=== PATIENT | female | born 1995 | race African-American/Black ===

== ENCOUNTER 2018-08-07 08:44 | Emergency (ER) | payer SELFPAY ==
[2018-08-07] MEDS ORDERED: LIDOCAINE 1% INJ-PF (10 MG/ML) 30 ML SDV NEB ONE (09:30)
[2018-08-07] MEDS ORDERED: CEFTRIAXONE INJ 250 MG VIAL IM ONE (09:30)
[2018-08-07] MEDS ORDERED: AZITHROMYCIN 1 GM SUSP PACKET PO ONE (09:30)
--- NOTE | 2018-08-07 10:16 | RADIOLOGY REPORT (SQ) ---
EXAM DESCRIPTION: FOOT RIGHT COMPLETE COMPLETED DATE/TIME: 08/07/2018 9:52 am REASON FOR STUDY: 5th toe injury COMPARISON: None. NUMBER OF VIEWS: Three views. TECHNIQUE: AP, lateral and oblique radiographic images acquired of the right foot. LIMITATIONS: None. FINDINGS: MINERALIZATION: Normal. BONES: Curvilinear bone fragment along the medial margin of the base middle 5th phalanx. JOINTS: No effusions. SOFT TISSUES: No soft tissue swelling. No foreign body. OTHER: No other significant finding. IMPRESSION: Nondisplaced avulsion fracture middle 5th phalanx. TECHNICAL DOCUMENTATION: JOB ID: [id number] [employer]- All Rights Reserved Reading location - IP/workstation name: [email or web address]
--- NOTE | 2018-08-07 13:06 | ER Document Report ---
ED General - General Chief Complaint: Abdominal Pain Stated Complaint: ABDOMINAL PAIN Time Seen by Provider: 08/07/18 09:23 TRAVEL OUTSIDE OF THE [place] IN LAST 30 DAYS: No - HPI Notes: Patient presents emergency department for evaluation. She actually has a few complaints. First she states she is concerned she broke her right fifth toe. She states she injured it approximately 4 weeks ago. He continues to hurt. She denies any other injury at this time. Patient also states she has had diarrhea for the last several days. She notes 3-4 episodes of watery to loose diarrhea. She denies any recent antibiotic use. No exotic travel, drinks city water. Patient also notes that she could have been exposed to chlamydia. She had a sexual partner who called her last night. He noted that he had tested positive for chlamydia. She states she did have unprotected sexual intercourse with this person approximately 4 weeks ago. She denies any vaginal discharge. No genital lesions of any sort. - Related Data Allergies/Adverse Reactions: No Known Allergies Allergy (Unverified 08/15/13 08:23) Past Medical History - General Information source: Patient - Social History Smoking Status: Never Smoker Family History: Reviewed & Not Pertinent Patient has suicidal ideation: No Patient has homicidal ideation: No Renal/ Medical History: Denies: Hx Peritoneal Dialysis GI Medical History: Reports: Hx Gastroesophageal Reflux Disease Past Surgical History: Reports: Hx Gynecologic Surgery - D&C FOR MOLAR - Immunizations Hx Diphtheria, Pertussis, Tetanus Vaccination: Yes Review of Systems - Review of Systems Constitutional: No symptoms reported EENT: No symptoms reported Cardiovascular: No symptoms reported Respiratory: No symptoms reported Gastrointestinal: Diarrhea Female Genitourinary: See HPI Musculoskeletal: See HPI Skin: No symptoms reported Neurological/Psychological: No symptoms reported Physical Exam - Vital signs Vitals: Temp Pulse Resp BP Pulse Ox 98.6 F 65 18 102/71 98 08/07/18 08:51 08/07/18 08:51 08/07/18 08:51 08/07/18 08:51 08/07/18 08:51 - Notes Notes: Vital signs reviewed, please refer to chart. Patient is normocephalic, atraumatic. Pupils equal round, reactive to light. Neck is supple without meningismus. Heart is regular rate and rhythm. Lungs are clear to auscultation bilaterally. Abdomen is soft, nontender, normoactive bowel sounds throughout. Extremities without cyanosis, clubbing, edema. Peripheral pulses are equal. Skin is warm and dry. External genitalia is within normal limits. Speculum exam is performed. Cervix is closed. Cervical motion tenderness is absent. No significant vaginal discharge. Cultures taken. No adnexal masses noted. Examination of the right foot yields mild tenderness over the fifth phalanx, primarily at the interphalangeal joint. Sensation intact, capillary refill is brisk. Dorsalis pedis pulse 2+. Course - Re-evaluation Re-evalutation: 08/07/18 13:03 Patient presents to the emergency department for evaluation. Regarding her diarrhea, she does not have any significant risk factors for a more serious etiology. She was informed about dietary changes and we will opt for conservative therapy at this time. Patient found this reasonable. X-ray of the right foot did reveal a toe fracture. Janette tape was placed and the patient was neurovascularly intact following. Given the fact that she does have positive history of exposure to STD, we did elect to cover for gonorrhea and chlamydia here. She was medicated with Rocephin and Zithromax. Tests were performed and pending at this time. This was explained to the patient she voiced understanding. We will give her instructions on gonorrhea and chlamydia. We will give her instructions on a broken toe. She is to follow a brat diet to decrease her diarrhea. She is to return to the emergency department with worsening or new concerning symptoms of any sort. 08/07/18 13:25 It was noted by lab specimens obtained from pelvic exam were mislabeled. Patient did consent to another pelvic exam. Findings were unchanged and specimens sent. - Vital Signs Vital signs: Temp Pulse Resp BP Pulse Ox 98.1 F 58 L 18 106/68 99 08/07/18 13:02 08/07/18 13:02 08/07/18 08:51 08/07/18 13:02 08/07/18 13:02 Discharge - Discharge Clinical Impression: Diarrhea, Exposure to chlamydia, Fracture of toe of right foot Instructions: Chlamydia ([facility]), Diarrhea, Nonspecific ([facility]), Fractured Toe ([facility]) Additional Instructions: You will be contacted if any of your testing comes back positive. Keep janette taped in place. Follow-up with orthopedics if your pain persists beyond another 2-4 weeks. BRAT diet as discussed. Return to the emergency department with worsening or new concerning symptoms.
[2018-08-07 13:07] VITALS: BP 106/68
[2018-08-07 13:44] LABS: T.VAGINALIS (WET MOUNT) NO TRICHOMONAS SEEN; WBCS (WET MOUNT) FEW WBCS SEEN; YEAST (WET MOUNT) NO YEAST SEEN
[2018-08-07 15:08] LABS: CHLAM PCR NOT DETECTED (NOT DETECT); GON PCR NOT DETECTED (NOT DETECT)
== END 2018-08-07 13:31 | disposition home or self-care (01) ==
LOC: ER 08:44
DX: S92.524A Nondisplaced fracture of middle phalanx of right lesser toe(s), initial encounter for closed fracture (principal); W22.8XXA Striking against or struck by other objects, initial encounter; R19.7 Diarrhea, unspecified; Z20.2 Contact with and (suspected) exposure to infections with a predominantly sexual mode of transmission
CPT/HCPCS: 94640; 99284; 96372; 87210; 87491; 87591; 73630; J3490; Q0144; J0696

== ENCOUNTER 2018-10-20 17:38 | Emergency (ER) | payer OTHER ==
[2018-10-20 18:57] LABS: APPEARANCE,URINE SLIGHTLY-CLOUDY; BILIRUBIN,URINE NEGATIVE (NEGATIVE); COLOR,URINE YELLOW; GLUCOSE, URINE NEGATIVE (NEGATIVE); KETONES,URINE NEGATIVE (NEGATIVE); LEUKOCYTE ESTERASE,URINE TRACE (NEGATIVE); NITRITE,URINE NEGATIVE (NEGATIVE); PROTEIN,URINE NEGATIVE (NEGATIVE); URINE SPECIFIC GRAVITY 1.025; UROBILINOGEN,URINE NEGATIVE mg/dL (<2.0)
--- NOTE | 2018-10-20 19:06 | ER Document Report ---
ED Medical Screen (RME) - General Chief Complaint: OB Problem (<20wks) Stated Complaint: ABDOMINAL PAIN Time Seen by Provider: 10/20/18 18:55 Mode of Arrival: Ambulatory Information source: Patient TRAVEL OUTSIDE OF THE U.S. IN LAST 30 DAYS: No - HPI Patient complains to provider of: ABDO PAIN, DIARRHEA, Notes: 10/20/18 19:05 Patient here with complaints of diarrhea, abdominal pain and being . She is not completely sure how far along she is. She states that she had intercourse on the of last month and took Plan B on the . She took a test today that was positive. She is concerned due to taking the Plan B that something potentially is wrong and is unsure how far along she is in the . Exam Nontoxic, no distress. Mild left lower quadrant tenderness to palpation on limited triage abdominal lungs clear and equal throughout. Heart sounds normal. Plan CBC, CMP, lipase, urine, urine , hCG, pelvic ultrasound. An initial examination was made on the patient as part of the triage process, and it was determined a more comprehensive evaluation was necessary. Initial labs were ordered and patient was transferred to another provider in the ED who assumed care and finished evaluation and plan. - Related Data Allergies/Adverse Reactions: No Known Allergies Allergy (Unverified 08/15/13 08:23) Past Medical History Renal/ Medical History: Denies: Hx Peritoneal Dialysis GI Medical History: Reports: Hx Gastroesophageal Reflux Disease Past Surgical History: Reports: Hx Gynecologic Surgery - D&C FOR MOLAR - Immunizations Hx Diphtheria, Pertussis, Tetanus Vaccination: Yes Physical Exam - Vital signs Vitals: Temp Pulse Resp BP Pulse Ox 99.4 F 71 16 118/60 99 10/20/18 17:50 10/20/18 17:50 10/20/18 17:50 10/20/18 17:50 10/20/18 17:50 Course - Vital Signs Vital signs: Temp Pulse Resp BP Pulse Ox 99.4 F 71 16 118/60 99 10/20/18 17:50 10/20/18 17:50 10/20/18 17:50 10/20/18 17:50 10/20/18 17:50 - Laboratory Laboratory results interpreted by me: 10/20/18 17:42 Ur Leukocyte Esterase TRACE H Urine HCG, Qual POSITIVE H
[2018-10-20 20:19] LABS: ABSOLUTE EOSINOPHILS # (AUTO) 0.1 10^3/uL (0.0-0.6); ABSOLUTE MONOCYTES (AUTO) 0.5 10^3/uL (0.1-1.4); BASOPHILS % (AUTO) 0.4 % (0-2); HEMATOCRIT 37.9 % (36.0-47.0); HEMOGLOBIN 12.8 g/dL (12.0-15.5); LYMPHOCYTES % (AUTO) 30.7 % (13-45); MEAN CORPUSCULAR HEMOGLOBIN 29.5 pg (27.0-33.4); MEAN CORPUSCULAR HGB CONC 33.7 g/dL (32.0-36.0); MEAN CORPUSCULAR VOLUME 88 fl (80-97); MONOCYTES % (AUTO) 6.8 % (3-13); PLATELET COUNT 279 10^3/uL (150-450); RED BLOOD COUNT 4.33 10^6/uL (3.72-5.28); RED CELL DISTRIBUTION WIDTH 13.8 % (11.5-14.0); SEGMENTED NEUTROPHILS % (AUTO) 61.1 % (42-78); TOTAL CELLS COUNTED % (AUTO) 100 %; WHITE BLOOD COUNT 6.6 10^3/uL (4.0-10.5)
[2018-10-20 20:34] LABS: ALANINE AMINOTRANSFERASE 31 U/L (9-52); ALBUMIN 3.9 g/dL (3.5-5.0); ALKALINE PHOSPHATASE 47 U/L (38-126); ANION GAP 9 (5-19); ASPARTATE AMINO TRANSFERASE 20 U/L (14-36); BILIRUBIN,DIRECT 0.2 mg/dL (0.0-0.4); BILIRUBIN,TOTAL 0.2 mg/dL (0.2-1.3); BLOOD UREA NITROGEN 9 mg/dL (7-20); CALCIUM 9.5 mg/dL (8.4-10.2); CARBON DIOXIDE 26 mmol/L (22-30); CHLORIDE 103 mmol/L (98-107); LIPASE 143.3 U/L (23-300); POTASSIUM 3.8 mmol/L (3.6-5.0); SODIUM 138.2 mmol/L (137-145); TOTAL PROTEIN 6.9 g/dL (6.3-8.2)
[2018-10-20 20:53] LABS: GLUCOSE 67 mg/dL (75-110)
--- NOTE | 2018-10-20 21:45 | RADIOLOGY REPORT (SQ) ---
US PELVIS HISTORY: Early . Pelvic pain. COMPARISON: None. TECHNIQUE: Grayscale, color Doppler, and spectral Doppler ultrasound images of the pelvis were obtained. FINDINGS: There is an intrauterine gestational sac with a mean sac diameter of 0.5 cm corresponding to 5 weeks 2 days of . No yolk sac or pole is seen at this time. The endometrium is thickened measuring 1.5 cm. The cervix measures 2.4 cm and is closed. Both ovaries are normal and contain normal follicles. Normal color Doppler blood flow is seen in both ovaries. IMPRESSION: Intrauterine gestational sac corresponding to 5 weeks 2 days. No yolk sac or pole is seen at this time. Findings may represent early . Recommend short-term follow-up ultrasound imaging.
[2018-10-20 23:38] VITALS: BP 134/63
[2018-10-21 01:17] LABS: CHLAM PCR NOT DETECTED (NOT DETECT); GON PCR NOT DETECTED (NOT DETECT)
--- NOTE | 2018-10-21 04:50 | ER Document Report ---
Entered by CARSON EDMONDS SCRIBE 10/20/18 [id number] Acting as scribe for:BANG MARTINEZ DO ED General - General Chief Complaint: OB Problem (<20wks) Stated Complaint: ABDOMINAL PAIN Time Seen by Provider: 10/20/18 18:55 Primary [facility] [Provider Group] - Follow up as needed Mode of Arrival: Ambulatory Information source: Patient Notes: Patient is a 23 year old female presenting to the emergency department compla ining of diarrhea and . Patient states she had unprotected intercourse on 10/01/18 and took Plan B on 10/03/2018. Patient states she took a test today which was positive. She states she would like to know how far along she is and expresses concern for any possible defects due to taking Plan B. She denies any fevers. Patient is A2. Patient left her phone number for GC [phone]. TRAVEL OUTSIDE OF THE [place] IN LAST 30 DAYS: No - Related Data Allergies/Adverse Reactions: No Known Allergies Allergy (Unverified 08/15/13 08:23) Past Medical History - General Information source: Patient - Social History Smoking Status: Never Smoker Frequency of alcohol use: Heavy Drug Abuse: Marijuana Family History: Reviewed & Not Pertinent Patient has suicidal ideation: No Patient has homicidal ideation: No GI Medical History: Reports: Hx Gastroesophageal Reflux Disease Past Surgical History: Reports: Hx Gynecologic Surgery - D&C FOR MOLAR - Immunizations Hx Diphtheria, Pertussis, Tetanus Vaccination: Yes Review of Systems - Review of Systems Constitutional: No symptoms reported EENT: No symptoms reported Cardiovascular: No symptoms reported Gastrointestinal: See HPI, Diarrhea Genitourinary: No symptoms reported Female Genitourinary: See HPI, Musculoskeletal: No symptoms reported Skin: No symptoms reported Hematologic/Lymphatic: No symptoms reported Neurological/Psychological: No symptoms reported -: Yes All other systems reviewed and negative Physical Exam - Vital signs Vitals: Temp Pulse Resp BP Pulse Ox 99.4 F 71 16 118/60 99 10/20/18 17:50 10/20/18 17:50 10/20/18 17:50 10/20/18 17:50 10/20/18 17:50 - Notes Notes: GENERAL: Alert, interacts well. No acute distress. HEAD: Normocephalic, atraumatic. EYES: Pupils equal, round, and reactive to light. Extraocular movements intact. ENT: Oral mucosa moist, tongue midline. NECK: Full range of motion. Supple. Trachea midline. LUNGS: Clear to auscultation bilaterally, no wheezes, rales, or rhonchi. No respiratory distress. HEART: Regular rate and rhythm. No murmurs, gallops, or rubs. ABDOMEN: Soft, non-tender. Non-distended. Bowel sounds present in all 4 quadrants. No guarding, rigidity, or rebound. EXTREMITIES: Moves all 4 extremities spontaneously. NEUROLOGICAL: Alert and oriented x3. Normal speech. PSYCH: Normal affect, normal mood. SKIN: Warm, dry, normal turgor. No rashes or lesions noted. Course - Re-evaluation Re-evalutation: 10/20/18 23:28 CBC unremarkable, CMP grossly unremarkable, quantitative beta-hCG 1556. Transvaginal ultrasound shows a 5-week 2-day gestation with gestational sac but no yolk sac or pole at this point. Discussed with patient that this could be a viable which is simply early or it could be an early miscarriage. Patient should follow-up with [facility] as an outpatient for a repeat ultrasound in the next 2 weeks to confirm viability. Patient is counseled to use vitamins, gonorrhea and chlamydia probe on a dirty urine will be sent and she will be called these results. Discharged home. Discussed the patient's diarrhea, she has no fevers, no blood and no abdominal pain, patient is counseled to use Imodium as needed for diarrhea. 10/21/18 04:49 Message left on cell phone with patient permission regarding negative STD testing. - Vital Signs Vital signs: Temp Pulse Resp BP Pulse Ox 98.9 F 63 18 134/63 H 100 10/20/18 23:35 10/20/18 23:35 10/20/18 23:35 10/20/18 23:35 10/20/18 23:35 - Laboratory Result Diagrams: 10/20/18 20:05 10/20/18 20:05 Laboratory results interpreted by me: 10/20/18 10/20/18 17:42 20:05 Glucose 67 L Beta HCG, Quant 1556.30 H Ur Leukocyte Esterase TRACE H Urine HCG, Qual POSITIVE H Discharge - Discharge Clinical Impression: First trimester Diarrhea Qualifiers: Diarrhea type: unspecified type Qualified Code(s): R19.7 - Diarrhea, unspecified Condition: Stable Disposition: HOME, SELF-CARE Additional Instructions: You are . care is best started as early in as possible. You should take only medications approved by your physician. Acetaminophen can safely be taken for minor pains. As a rule, medication for chronic condi tions such as asthma or seizures can safely be continued. You should discuss with the physician every medicine you take. Any regular exercise program can be continued. Talk to your physician, brodie purcell, before engaging in competitive or demanding sports. Alcohol, smoking, and "street drugs" are dangerous to your baby. Cocaine is especially dangerous. Don't use any illicit drugs! Please follow-up with [facility] or the health department within the next 2 weeks for repeat ultrasound because your ultrasound today showed a gestational sac but no yolk sac or pole. You are 5 weeks and 2 days . For your diarrhea you may take Imodium as directed on the box. You should not take Pepto-Bismol or Kaopectate. Both of these contain aspirin-like compounds that can be dangerous to the . Forms: Return to Work Referrals: [facility] [Provider Group] - Follow up as needed I personally performed the services described in the documentation, reviewed and edited the documentation which was dictated to the scribe in my presence, and it accurately records my words and actions.
== END 2018-10-20 23:39 | disposition home or self-care (01) ==
LOC: ER 17:38
DX: O26.891 Other specified pregnancy related conditions, first trimester (principal); R19.7 Diarrhea, unspecified; O99.321 Drug use complicating pregnancy, first trimester; F12.10 Cannabis abuse, uncomplicated; Z3A.01 Less than 8 weeks gestation of pregnancy
CPT/HCPCS: 36415; 76817; 80053; 81001; 81025; 83690; 84702; 85025; 87491; 87591; 93976; 99284

== ENCOUNTER 2018-10-25 11:17 | Emergency (ER) | payer OTHER ==
--- NOTE | 2018-10-25 11:39 | ER Document Report ---
ED GI/ - General Chief Complaint: Pelvic Pain Stated Complaint: POSSIBLE Time Seen by Provider: 10/25/18 11:33 Primary Care [facility] [[facility]] - Follow up as needed Mode of Arrival: Ambulatory Information source: Patient Notes: 23-year-old female presented to ED for follow-up from her visit on 10 20 when there was questions whether or not she had a child or ablated Ultram. We will repeat labs and ultrasound. And inform patient where to go from here. Patient is alert oriented respirations regular and unlabored speaking in full sentences walks even steady gait. She states she is having pelvic cramping but no vaginal bleeding. TRAVEL OUTSIDE OF THE [place] IN LAST 30 DAYS: No - HPI Patient complains to provider of: Pelvic pain, Onset: Last week Timing/Duration: Persistent Quality of pain: Cramping Severity at maximum: Mild Severity in ED: None Pain Level: Denies Vaginal bleeding (Compared to normal period): None Menstrual period history: Associated symptoms: Other - Pelvic cramping Exacerbated by: Denies Relieved by: Denies Similar symptoms previously: Yes Recently seen / treated by doctor: Yes - Related Data Allergies/Adverse Reactions: No Known Allergies Allergy (Unverified 08/15/13 08:23) Past Medical History - General Information source: Patient - Social History Smoking Status: Never Smoker Frequency of alcohol use: None Drug Abuse: None Family History: Reviewed & Not Pertinent Patient has suicidal ideation: No Patient has homicidal ideation: No - Past Medical History Cardiac Medical History: Reports: None Pulmonary Medical History: Reports: None EENT Medical History: Reports: None Neurological Medical History: Reports: None Endocrine Medical History: Reports: None Renal/ Medical History: Reports: None Malignancy Medical History: Reports: None GI Medical History: Reports: Hx Gastroesophageal Reflux Disease Musculoskeletal Medical History: Reports None Skin Medical History: Reports None Psychiatric Medical History: Reports: None Traumatic Medical History: Reports: None Infectious Medical History: Reports: None Surgical Hx: Negative Past Surgical History: Reports: None, Hx Gynecologic Surgery - D&C FOR MOLAR - Immunizations Hx Diphtheria, Pertussis, Tetanus Vaccination: Yes Review of Systems - Review of Systems Constitutional: No symptoms reported EENT: No symptoms reported Cardiovascular: No symptoms reported Respiratory: No symptoms reported Gastrointestinal: No symptoms reported Genitourinary: No symptoms reported Female Genitourinary: Musculoskeletal: No symptoms reported Skin: No symptoms reported Hematologic/Lymphatic: No symptoms reported Neurological/Psychological: No symptoms reported -: Yes All other systems reviewed and negative Physical Exam - Vital signs Vitals: Temp Pulse Resp BP Pulse Ox 98.4 F 70 16 116/62 98 10/25/18 11:26 10/25/18 11:26 10/25/18 11:26 10/25/18 11:10/25/18 11:26 Interpretation: Normal - General General appearance: Appears well, Alert - HEENT Head: Normocephalic, Atraumatic Eyes: Normal Pupils: PERRL - Respiratory Respiratory status: No respiratory distress Chest status: Nontender Breath sounds: Normal Chest palpation: Normal - Cardiovascular Rhythm: Regular Heart sounds: Normal auscultation Murmur: No - Abdominal Inspection: Normal Distension: No distension Bowel sounds: Normal Tenderness: Nontender Organomegaly: No organomegaly - Back Back: Normal, Nontender - Extremities General upper extremity: Normal inspection, Nontender, Normal color, Normal ROM, Normal temperature General lower extremity: Normal inspection, Nontender, Normal color, Normal ROM, Normal temperature, Normal weight bearing. No: Gustavo's sign - Neurological Neuro grossly intact: Yes Cognition: Normal Orientation: AAOx4 [place] Coma Scale Eye Opening: Spontaneous [place] Coma Scale Verbal: Oriented [place] Coma Scale Motor: Obeys Commands [place] Coma Scale Total: 15 Speech: Normal Motor strength normal: LUE, RUE, LLE, RLE Sensory: Normal - Psychological Associated symptoms: Normal affect, Normal mood - Skin Skin Temperature: Warm Skin Moisture: Dry Skin Color: Normal Course - Re-evaluation Re-evalutation: 10/25/18 20:38 Discussed labs and ultrasound with patient and written report of labs and ultrasound given to patient for follow-up with her primary care doctor and 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 Patient was discharged home. - Vital Signs Vital signs: Temp Pulse Resp BP Pulse Ox 98.4 F 62 16 116/58 L 100 10/25/18 11:26 10/25/18 17:33 10/25/18 11:26 10/25/18 17:33 10/25/18 17:33 - Laboratory Result Diagrams: 10/25/18 12:10 10/25/18 12:10 Laboratory results interpreted by me: 10/25/18 10/25/18 12:10 12:10 Beta HCG, Quant 9137.50 H Urine Ketones TRACE H - Diagnostic Test Radiology reviewed: Image reviewed, Reports reviewed Discharge - Discharge Clinical Impression: First trimester , Vaginal abnormality in Condition: Stable Disposition: HOME, SELF-CARE Additional Instructions: : You are . care is best started as early in as possible. If you're unsure about continuing this , you should discuss this with your physician or with drum carrier at [facility]. You should take only medications approved by your physician. Acetaminophen can safely be taken for minor pains. As a rule, medication for chronic conditions such as asthma or seizures can safely be continued. You should discuss with the physician every medicine you take. Any regular exercise program can be continued. Talk to your physician, however, before engaging in competitive or demanding sports. Alcohol, smoking, and "street drugs" are dangerous to your baby. Cocaine is especially dangerous. Don't use any illicit drugs! BLEEDING DURING EARLY : You have been evaluated for passing blood while . While we take this symptom very seriously, most women with your degree of bleeding will go on to have a perfectly normal baby. At this time, there is no indication that a miscarriage will occur. (A miscarriage occurs when the fetus is abnormal. There is no medicine or treatment to prevent it.) A more serious cause of bleeding is tubal (or ectopic) . An ultrasound usually can show whether the is in the uterus or in the tube. Sometimes in early , no fetus is seen. In this case, careful follow-up, including repeat blood tests and repeat ultrasound, is necessary. Do not douche or have sex for at least a week, or until OK'd by the doctor. Don't use tampons. Call the doctor or return for re-examination if there is an increase in bleeding or cramping, extreme weakness, fainting, new abdominal pain, fever, or passage of tissue. FOLLOW-UP CARE: If you have been referred to a physician for follow-up care, call the physicians office for an appointment as you were instructed or within the next two days. If you experience worsening or a significant change in your symptoms (very heavy bleeding with large clots of blood, passage of tissue, more severe abdominal / pelvic pain or cramping, feeling faint or severe weakness, fever, etc.), notify the physician immediately or return to the Emergency Department at any time for re-evaluation. OBSTETRIC-GYNECOLOGIC (OB-ELIGIBILITY CLERK) PHYSICIANS IN [place]: [facility] [address] [place] [address] [phone] For active duty and dependents diagnosed with a threatened or miscarriage, you should follow up in the following manner: Standard patients who have a local civilian provider should follow up with that provider. Patients of the Family Practice Clinic should call your Team Nurse at 8:00 am the following morning for further instructions. If you are neither a Standard patient nor a patient of the Family Practice Clinic, you should follow up at the [facility] ([facility]). Patients already enrolled in the [facility], Prime patients not assigned to the Family Practice Clinic, and Active Duty patients not assigned to Family Practice Clinic should report to the [facility] at 8:00 am the next morning that the [facility] is open and then you will be seen in the OB Clinic at 1 1:00 am. Referrals: [facility] [Provider Group] - Follow up as needed
[2018-10-25 12:21] LABS: ABSOLUTE LYMPHOCYTES (AUTO) 1.5 10^3/uL (0.5-4.7); ABSOLUTE MONOCYTES (AUTO) 0.3 10^3/uL (0.1-1.4); ABSOLUTE NEUT (AUTO) 2.4 10^3/uL (1.7-8.2); BASOPHILS % (AUTO) 0.5 % (0-2); EOSINOPHILS % (AUTO) 0.5 % (0-6); HEMATOCRIT 39.8 % (36.0-47.0); HEMOGLOBIN 13.5 g/dL (12.0-15.5); MEAN CORPUSCULAR HEMOGLOBIN 29.4 pg (27.0-33.4); MEAN CORPUSCULAR HGB CONC 33.8 g/dL (32.0-36.0); MEAN CORPUSCULAR VOLUME 87 fl (80-97); MONOCYTES % (AUTO) 7.5 % (3-13); PLATELET COUNT 293 10^3/uL (150-450); RED BLOOD COUNT 4.58 10^6/uL (3.72-5.28); RED CELL DISTRIBUTION WIDTH 13.6 % (11.5-14.0); SEGMENTED NEUTROPHILS % (AUTO) 56.5 % (42-78); TOTAL CELLS COUNTED % (AUTO) 100 %; WHITE BLOOD COUNT 4.3 10^3/uL (4.0-10.5)
[2018-10-25 12:31] LABS: APPEARANCE,URINE SLIGHTLY-CLOUDY; BILIRUBIN,URINE NEGATIVE (NEGATIVE); COLOR,URINE YELLOW; GLUCOSE, URINE NEGATIVE (NEGATIVE); KETONES,URINE TRACE mg/dL (NEGATIVE); LEUKOCYTE ESTERASE,URINE NEGATIVE (NEGATIVE); NITRITE,URINE NEGATIVE (NEGATIVE); PROTEIN,URINE NEGATIVE (NEGATIVE); URINE SPECIFIC GRAVITY 1.029; UROBILINOGEN,URINE NEGATIVE mg/dL (<2.0)
[2018-10-25 12:38] LABS: ALANINE AMINOTRANSFERASE 24 U/L (9-52); ALBUMIN 4.3 g/dL (3.5-5.0); ALKALINE PHOSPHATASE 41 U/L (38-126); ANION GAP 12 (5-19); ASPARTATE AMINO TRANSFERASE 19 U/L (14-36); BILIRUBIN,DIRECT 0.2 mg/dL (0.0-0.4); BILIRUBIN,TOTAL 0.3 mg/dL (0.2-1.3); BLOOD UREA NITROGEN 8 mg/dL (7-20); CALCIUM 9.6 mg/dL (8.4-10.2); CARBON DIOXIDE 24 mmol/L (22-30); CHLORIDE 104 mmol/L (98-107); GLUCOSE 101 mg/dL (75-110); POTASSIUM 4.1 mmol/L (3.6-5.0); SODIUM 139.5 mmol/L (137-145); TOTAL PROTEIN 7.5 g/dL (6.3-8.2)
--- NOTE | 2018-10-25 16:46 | RADIOLOGY REPORT (SQ) ---
EXAM DESCRIPTION: U/S OB TRANSVAG W/DOPPLER COMPLETED DATE/TIME: 10/25/2018 4:32 pm REASON FOR STUDY: follow up from last visit COMPARISON: 10/20/2018 TECHNIQUE: Endovaginal static and realtime grayscale images acquired of the pelvis. Additional selec gabbie spectral and color Doppler images recorded. All images stored on PACs. CLINICAL AGE: 409/19/2020 [id number] today Was 1,556 on 10/20/2018 LIMITATIONS: None. FINDINGS: UTERUS: No masses. No anomalies. Uterus is 10.5 x 7.7 x 5.7 cm GESTATIONAL SAC: Normal shape, estimated gestational age 5 weeks 5 days by mean sac diameter. Small subchorionic hemorrhage 12 mm in size. YOLK SAC: Identified POLE: Identified, embryo cardiac activity identified at real-time scanning, estimated age 5 wee ks 5 days, crown rump length is 2 mm RIGHT ADNEXA: Normal ovary with normal vascular flow. Right ovary 3.1 x 2.5 x 1.3 cm in size No adnexal free fluid. No adnexal masses. LEFT ADNEXA: Not visualized due to limited acoustic window. FREE FLUID: None. OTHER: No other significant finding. IMPRESSION: Intrauterine , 5 weeks 5 days estimated gestational age. Embryo cardiac activi ty identified Estimated due date 06/22/2019 Nonvisualization left adnexa due to bowel gas Trimester of : First - 0 to 13 weeks. TECHNICAL DOCUMENTATION: JOB ID: [id number] [employer]- All Rights Reserved Reading location - IP/workstation name: [email or web address]
[2018-10-25 17:39] VITALS: BP 116/58
== END 2018-10-25 17:40 | disposition home or self-care (01) ==
LOC: ER 11:17
DX: O26.91 Pregnancy related conditions, unspecified, first trimester (principal); R10.2 Pelvic and perineal pain; Z3A.00 Weeks of gestation of pregnancy not specified
CPT/HCPCS: 36415; 76817; 80053; 81001; 84702; 85025; 86900; 86901; 93976; 99284

== ENCOUNTER → 2019-06-06 | Outpatient (CLI) | payer MEDICAID ==
[2019-06-07 11:38] LABS: HSV-I IGG AB <0.91 index (0.00-0.90)
== END ==
LOC: OD 11:46
PROVIDERS: ATTEND Student in an Organized Health Care Education/Training Program
DX: B00.9 Herpesviral infection, unspecified (principal)
CPT/HCPCS: 36415; 86695; 86696

== ENCOUNTER 2019-06-22 05:36 | Inpatient (IN) | payer MEDICAID ==
[2019-06-22] MEDS ORDERED: CEFAZOLIN 2 GM/D5W RTU 2 GM/50 ML RTUPB IV PRN (06:13)
[2019-06-22] MEDS ORDERED: RINGERS SOLUTION,LACTATED 1,000 ML IV ONE (06:15)
[2019-06-22 06:33] LABS: ABSOLUTE EOSINOPHILS # (AUTO) 0.1 10^3/uL (0.0-0.6); ABSOLUTE LYMPHOCYTES (AUTO) 1.9 10^3/uL (0.5-4.7); ABSOLUTE MONOCYTES (AUTO) 0.6 10^3/uL (0.1-1.4); ABSOLUTE NEUT (AUTO) 4.1 10^3/uL (1.7-8.2); BASOPHILS % (AUTO) 0.4 % (0-2); EOSINOPHILS % (AUTO) 1.4 % (0-6); HEMATOCRIT 36.8 % (36.0-47.0); HEMOGLOBIN 12.7 g/dL (12.0-15.5); LYMPHOCYTES % (AUTO) 28.1 % (13-45); MEAN CORPUSCULAR HEMOGLOBIN 30.4 pg (27.0-33.4); MEAN CORPUSCULAR HGB CONC 34.6 g/dL (32.0-36.0); MEAN CORPUSCULAR VOLUME 88 fl (80-97); MONOCYTES % (AUTO) 8.7 % (3-13); PLATELET COUNT 245 10^3/uL (150-450); RED BLOOD COUNT 4.19 10^6/uL (3.72-5.28); RED CELL DISTRIBUTION WIDTH 14.1 % (11.5-14.0); SEGMENTED NEUTROPHILS % (AUTO) 61.4 % (42-78); TOTAL CELLS COUNTED % (AUTO) 100 %; WHITE BLOOD COUNT 6.7 10^3/uL (4.0-10.5)
[2019-06-22] MEDS: RINGERS SOLUTION,LACTATED 1,000 ML IV PRN ×2 (07:15→10:40)
[2019-06-22 07:34] LABS: APPEARANCE,URINE SLIGHTLY-CLOUDY; BILIRUBIN,URINE NEGATIVE (NEGATIVE); COLOR,URINE YELLOW; GLUCOSE, URINE NEGATIVE (NEGATIVE); KETONES,URINE NEGATIVE (NEGATIVE); LEUKOCYTE ESTERASE,URINE MODERATE (NEGATIVE); NITRITE,URINE NEGATIVE (NEGATIVE); PROTEIN,URINE NEGATIVE (NEGATIVE); URINE SPECIFIC GRAVITY 1.019; UROBILINOGEN,URINE NEGATIVE mg/dL (<2.0)
[2019-06-22] MEDS ORDERED: PROPOFOL INJ 200 MG/20 ML VIAL IV ONE (08:49)
[2019-06-22] MEDS ORDERED: ONDANSETRON HCL INJ/PF 4 MG/2 ML SDV ONE (08:49)
[2019-06-22] MEDS ORDERED: OXYTOCIN 10 UNIT/ML VIAL ONE (08:50)
[2019-06-22] MEDS ORDERED: MEPERIDINE HCL/PF INJ 25 MG/1 ML DISP.SYRIN IV PRN (09:11)
[2019-06-22] MEDS ORDERED: PROMETHAZINE HCL INJ 25 MG/1 ML VIAL IV PRN ×4 (09:11→09:15)
[2019-06-22] MEDS ORDERED: FENTANYL CITRATE INJ/PF 100 MCG/2 ML AMPUL IV PRN ×3 (09:11)
[2019-06-22] MEDS ORDERED: MORPHINE SULFATE 10 MG/ML INJ IV PRN (09:11)
[2019-06-22] MEDS ORDERED: DIPHENHYDRAMINE HCL 50 MG/ML VIAL IV PRN (09:11)
[2019-06-22] MEDS ORDERED: SIMETHICONE 80 MG TAB.CHEW PO PRN ×2 (09:13→09:15)
[2019-06-22] MEDS ORDERED: MEASLES,MUMPS&RUBELLA VACC/PF 0.5 ML VIAL SUBCUT PRN ×2 (09:13→09:15)
[2019-06-22] MEDS ORDERED: OXYCODONE-ACETAMINOPHEN 5-325 MG TABLET PO PRN ×3 (09:13→09:15)
[2019-06-22] MEDS ORDERED: OXYTOCIN/NORMAL SALINE 20 UNIT/1,000 ML RTUINJ IV PRN (09:13)
[2019-06-22] MEDS ORDERED: ACETAMINOPHEN 325 MG TABLET PO PRN ×2 (09:13→09:15)
[2019-06-22] MEDS ORDERED: DIPH/PERTUSS(ACELL)/TETANUS VAC/PF 0.5 ML SYR (>=10YO) IM PRN ×2 (09:13→09:15)
--- NOTE | 2019-06-22 09:13 | Operative Report ---
Operative Report DATE OF SURGERY: 06/22/19 PREOPERATIVE DIAGNOSIS: IUP at term with recent HSV outbreak POSTOPERATIVE DIAGNOSIS: Same OPERATION: Primarily low transverse section delivery of male Apgars of 8 and 9 pounds 4 ounces SURGEON: MT BARBER ANESTHESIA: GA TISSUE REMOVED OR ALTERED: Placenta COMPLICATIONS: None ESTIMATED BLOOD LOSS: Approximate 100 cc PROCEDURE: Primary low transverse section delivery of a viable male the patient was taken to the operating room where spinal anesthesia was obtained and found to be adequate. She was then prepped and draped in the normal sterile fashion and placed in the dorsal supine position with a leftward tilt. A Pfannenstiel skin incision was then made and carried through to the underlying layers of the fascia with the scalpel. The fascia was incised in the midline and the incision extended laterally with the Gaona scissors. The superior aspect of the fascial incision was then grasped with Ирина clamps elevated and the underlying rectus muscles dissected off bluntly. Attention was then turned to the inferior aspect of the fascial incision which in a similar fashion was grasped, tented up with Kecia clamps, and the rectus muscles dissected off bluntly. The rectus muscles were then in the midline and the peritoneum at the amount identified and entered bluntly. The peritoneal incision was then extended superiorly and inferiorly with good visualization of the bladder. [The bladder blade was inserted and the vesicouterine peritoneum identified grasped with Monegasque pickups and entered sharply with the Metzenbaum scissors. His incision was then extended laterally with the Metzenbaum scissors and a bladder flap created digitally. The bladder blade was then reinserted and the lower uterine segment incised in a transverse fashion with the scalpel. The uterine incision was then extended bluntly. The bladder blade was removed and the infant's head was delivered from cephalic presentation atraumatically. The nose and mouth were suctioned and the cord doubly clamped and cut. And the infant was handed off to waiting pediatricians. The placenta was then delivered manully and the uterus exteriorized and cleared of all clots and debris. The uterine incision was then repaired with 1-0 Vicryl in a running locked fashion. A second layer of the same suture was used to obtain hemostasis via imbrication of the initial layer. The uterus was returned to the patient's abdomen. The gutters were cleared of all clots and debris. All operative sites were noted to be hemostatic. The fascia was reapproximated with 0 Vicryl in a running fashion from each lateral edge to the midline. The patient tolerated the procedure well. Sponge lap needle and instrument counts are correct -2. 2 g of Ancef were given prior to skin incision. The patient was taken to the recovery area awake and in stable cond ition.
[2019-06-22] MEDS ORDERED: ACETAMINOPHEN 1,000 MG/100 ML RTUPB IV PRN (09:15)
[2019-06-22] MEDS ORDERED: OXYTOCIN/NORMAL SALINE 1,000 ML IV PRN (09:15)
[2019-06-22] MEDS ORDERED: ACETAMINOPHEN 1,000 MG/100 ML RTUPB IV ONE (09:36)
[2019-06-22] MEDS ORDERED: OXYTOCIN/NORMAL SALINE 20 UNIT/1,000 ML RTUINJ ONE (09:43)
[2019-06-22] MEDS ORDERED: PRENATAL VITAMIN W DHA CAPSULE PO SCH (10:00)
[2019-06-22] MEDS ORDERED: DOCUSATE SODIUM 100 MG CAPSULE PO SCH (10:00)
[2019-06-22 10:09] LABS: URINE AMPHETAMINES SCREEN NEGATIVE; URINE BARBITURATES SCREEN NEGATIVE; URINE BENZODIAZEPINES SCREEN NEGATIVE; URINE COCAINE SCREEN NEGATIVE; URINE MARIJUANA (THC) SCREEN NEGATIVE; URINE METHADONE SCREEN NEGATIVE; URINE PHENCYCLIDINE SCREEN NEGATIVE
[2019-06-22] MEDS ORDERED: MEPERIDINE HCL/PF INJ 25 MG/1 ML DISP.SYRIN ONE (10:21)
[2019-06-22] MEDS ORDERED: HYDROMORPHONE HCL INJ/PF 2 MG/ML AMPULE ONE (10:53)
[2019-06-22] MEDS ORDERED: MORPHINE SULFATE 10 MG/ML INJ ONE (10:56)
[2019-06-22] MEDS: DOCUSATE SODIUM 100 MG CAPSULE PO SCH (11:33)
[2019-06-22] MEDS: PRENATAL VITAMIN W DHA CAPSULE PO SCH (11:33)
[2019-06-22] MEDS: KETOROLAC TROMETHAMINE INJ/PF 30 MG/1 ML SDV IV SCH ×2 (11:52→17:09)
[2019-06-22] MEDS ORDERED: HYDROMORPHONE HCL INJ/PF 2 MG/ML AMPULE IV PRN (16:53)
[2019-06-22] MEDS: OXYCODONE-ACETAMINOPHEN 5-325 MG TABLET PO PRN (23:04)
[2019-06-23] MEDS: RINGERS SOLUTION,LACTATED 1,000 ML IV PRN (00:14)
[2019-06-23] MEDS: KETOROLAC TROMETHAMINE INJ/PF 30 MG/1 ML SDV IV SCH ×3 (02:52→19:23)
[2019-06-23 06:02] LABS: HEMATOCRIT 33.1 % (36.0-47.0); HEMOGLOBIN 11.4 g/dL (12.0-15.5); MEAN CORPUSCULAR HEMOGLOBIN 30.3 pg (27.0-33.4); MEAN CORPUSCULAR HGB CONC 34.5 g/dL (32.0-36.0); MEAN CORPUSCULAR VOLUME 88 fl (80-97); PLATELET COUNT 214 10^3/uL (150-450); RED BLOOD COUNT 3.77 10^6/uL (3.72-5.28); WHITE BLOOD COUNT 7.5 10^3/uL (4.0-10.5)
[2019-06-23] MEDS: PRENATAL VITAMIN W DHA CAPSULE PO SCH (09:24)
[2019-06-23] MEDS: OXYCODONE-ACETAMINOPHEN 5-325 MG TABLET PO PRN ×2 (09:25→19:43)
[2019-06-23] MEDS: DOCUSATE SODIUM 100 MG CAPSULE PO SCH ×3 (09:25→17:34)
[2019-06-23] MEDS: IBUPROFEN 800 MG TABLET PO SCH ×2 (12:32→17:34)
--- NOTE | 2019-06-23 17:00 | PDOC PROGRESS REPORT ---
Subjective-OB Progress Note for:: 06/23/19 Subjective: reports bleeding slowing, pain controlled with current meds, denies needs Physical Exam (OB) Vital Signs: Temp Pulse Resp BP Pulse Ox 98.5 F 79 18 109/73 97 06/23/19 15:47 06/23/19 15:47 06/23/19 15:47 06/23/19 15:47 06/23/19 15:47 Intake & Output 06/22/19 06/23/19 06/24/19 06:59 06:59 06:59 Intake Total 4417 Output Total 7500 Balance -3083 - Dressing Removed: No - fell off while in shower per pt report Incision: Open, Well Approximated - Lochia Lochia Amount: Scant < 10 ml - Abdomen Description: Tender, Soft Hernia Present: No Fundal Description: Firm, Midline Fundal Height: u/u - u/2 - Abdominal Distension: No distension - Extremities Lower extremities: Gustavo's sign - neg Calf: Normal, Nontender Objective-Diagnostic Laboratory: 06/23/19 05:47 06/23/19 05:47 WBC 7.5 RBC 3.77 Hgb 11.4 L Hct 33.1 L MCV 88 MCH 30.3 MCHC 34.5 RDW 14.0 Plt Count 214 Assessment and Plan(PN) - Assessment and Plan (1) HSV (herpes simplex virus) infection Is this a current diagnosis for this admission?: Yes (2) S/P primary low transverse Is this a current diagnosis for this admission?: Yes - Time Spent with Patient Time with patient: Less than 15 minutes Medications reviewed and adjusted accordingly: Yes - Disposition Anticipated Discharge: Home Within: within 48 hours
[2019-06-24] MEDS: IBUPROFEN 800 MG TABLET PO SCH ×4 (00:14→17:48)
[2019-06-24] MEDS: OXYCODONE-ACETAMINOPHEN 5-325 MG TABLET PO PRN (07:43)
[2019-06-24] MEDS: DOCUSATE SODIUM 100 MG CAPSULE PO SCH ×2 (11:06→17:48)
[2019-06-24] MEDS: PRENATAL VITAMIN W DHA CAPSULE PO SCH (11:07)
--- NOTE | 2019-06-24 11:54 | PDOC PROGRESS REPORT ---
Subjective-OB Progress Note for:: 06/24/19 Subjective: reports bleeding slowing, pain controlled with current meds, denies needs.+passing gas Physical Exam (OB) Vital Signs: Temp Pulse Resp BP Pulse Ox 98.4 F 73 18 107/67 97 06/24/19 07:44 06/24/19 07:44 06/24/19 07:44 06/24/19 07:44 06/24/19 07:44 Intake & Output 06/23/19 06/24/19 06/25/19 06:59 06:59 06:59 Intake Total 4417 2100 Output Total 7500 Balance -3083 2100 - Dressing Removed: No Incision: Open, Well Approximated - Abdomen Description: Tender, Soft Hernia Present: No Fundal Description: Firm, Midline Fundal Height: u/u - u/2 - Abdominal Distension: No distension - Extremities Lower extremities: Gustavo's sign - neg Calf: Normal, Nontender Objective-Diagnostic Laboratory: 06/23/19 05:47 Assessment and Plan(PN) - Assessment and Plan (1) HSV (herpes simplex virus) infection Is this a current diagnosis for this admission?: Yes (2) S/P primary low transverse Is this a current diagnosis for this admission?: Yes - Time Spent with Patient Time with patient: Less than 15 minutes Medications reviewed and adjusted accordingly: Yes - Disposition Anticipated Discharge: Home Within: within 24 hours
[2019-06-25] MEDS: IBUPROFEN 800 MG TABLET PO SCH ×3 (00:24→11:48)
[2019-06-25] MEDS: DOCUSATE SODIUM 100 MG CAPSULE PO SCH (09:56)
[2019-06-25] MEDS: PRENATAL VITAMIN W DHA CAPSULE PO SCH (09:56)
--- NOTE | 2019-06-25 12:45 | PDOC DISCHARGE SUMMARY ---
Impression - Admit/DC Date/PCP Admission Date/Primary Care Provider: 06/22/19 05:36 SUZY CARBONE MD Discharge Date: 06/25/19 - Discharge Diagnosis (1) HSV (herpes simplex virus) infection Is this a current diagnosis for this admission?: Yes (2) S/P primary low transverse Is this a current diagnosis for this admission?: Yes - Additional Information Resuscitation Status: Full Code Discharge Activity: Balance Activity w/Rest, No Lifting Over 10 Pounds, No Lifting/Push/Pulling, Pelvic Rest, No tub bath Referrals: [facility] [Provider Group] Prescriptions: Ibuprofen [Motrin 800 mg Tablet] 800 mg PO Q6HP PRN #90 tablet PRN Reason: Oxycodone HCl/Acetaminophen [Percocet 5-325 mg Tablet] 1 tab PO Q4HP PRN #30 tablet PRN Reason: No.137/Iron/Folic Acd [ Vitamin Tablet] 1 each PO DAILY #90 tablet Home Medications: Ibuprofen [Motrin 800 mg Tablet] 800 mg PO Q6HP PRN #90 tablet 06/25/19 Oxycodone HCl/Acetaminophen [Percocet 5-325 mg Tablet] 1 tab PO Q4HP PRN #30 tablet 06/25/19 No.137/Iron/Folic Acd [ Vitamin Tablet] 1 each PO DAILY #90 tablet 06/25/19 HPI Gestational Age: 39+3 Reason(s) for Admission: Ceasarean Section-Primary Procedures: NST Intrapartum Procedure(s): : Low Cervical, Transverse Results Laboratory Results: WBC 7.5 10^3/uL (4.0-10.5) 06/23/19 05:47 RBC 3.77 10^6/uL (3.72-5.28) 06/23/19 05:47 Hgb 11.4 g/dL (12.0-15.5) L 06/23/19 05:47 Hct 33.1 % (36.0-47.0) L 06/23/19 05:47 MCV 88 fl (80-97) 06/23/19 05:47 MCH 30.3 pg (27.0-33.4) 06/23/19 05:47 MCHC 34.5 g/dL (32.0-36.0) 06/23/19 05:47 RDW 14.0 % (11.5-14.0) 06/23/19 05:47 Plt Count 214 10^3/uL (150-450) 06/23/19 05:47 Lymph % (Auto) 28.1 % (13-45) 06/22/19 06:25 [place] % (Auto) 8.7 % (3-13) 06/22/19 06:25 Eos % (Auto) 1.4 % (0-6) 06/22/19 06:25 Baso % (Auto) 0.4 % (0-2) 06/22/19 06:25 Absolute Neuts (auto) 4.1 10^3/uL (1.7-8.2) 06/22/19 06:25 Absolute Lymphs (auto) 1.9 10^3/uL (0.5-4.7) 06/22/19 06:25 Absolute Monos (auto) 0.6 10^3/uL (0.1-1.4) 06/22/19 06:25 Absolute Eos (auto) 0.1 10^3/uL (0.0-0.6) 06/22/19 06:25 Absolute Basos (auto) 0.0 10^3/uL (0.0-0.2) 06/22/19 06:25 Seg Neutrophils % 61.4 % (42-78) 06/22/19 06:25 Urine Color YELLOW 06/22/19 07:13 Urine Appearance SLIGHTLY-CLOUDY 06/22/19 07:13 Urine pH 7.0 (5.0-9.0) 06/22/19 07:13 Ur Specific [place] 1.019 06/22/19 07:13 Urine Protein NEGATIVE mg/dL (NEGATIVE) 06/22/19 07:13 Urine Glucose (UA) NEGATIVE mg/dL (NEGATIVE) 06/22/19 07:13 Urine Ketones NEGATIVE mg/dL (NEGATIVE) 06/22/19 07:13 Urine Blood NEGATIVE (NEGATIVE) 06/22/19 07:13 Urine Nitrite NEGATIVE (NEGATIVE) 06/22/19 07:13 Urine Bilirubin NEGATIVE (NEGATIVE) 06/22/19 07:13 Urine Urobilinogen NEGATIVE mg/dL (<2.0) 06/22/19 07:13 Ur Leukocyte Esterase MODERATE (NEGATIVE) H 06/22/19 07:13 Urine WBC (Auto) 16 /HPF 06/22/19 07:13 Urine RBC (Auto) 5 /HPF 06/22/19 07:13 U Hyaline Cast (Auto) 1 /LPF 06/22/19 07:13 Squamous Epi Cells Auto 5 /HPF 06/22/19 07:13 Urine Mucus (Auto) RARE /LPF 06/22/19 07:13 Urine Ascorbic Acid NEGATIVE (NEGATIVE) 06/22/19 07:13 Urine Opiates Screen NEGATIVE 06/22/19 07:13 Urine Methadone Screen NEGATIVE 06/22/19 07:13 Ur Barbiturates Screen NEGATIVE 06/22/19 07:13 Ur Phencyclidine Scrn NEGATIVE 06/22/19 07:13 Ur Amphetamines Screen NEGATIVE 06/22/19 07:13 U Benzodiazepines Scrn NEGATIVE 06/22/19 07:13 Urine Cocaine Screen NEGATIVE 06/22/19 07:13 U Marijuana (THC) Screen NEGATIVE 06/22/19 07:13 Blood Type O POSITIVE 06/22/19 06:25 Antibody Screen NEGATIVE 06/22/19 06:25 Plan Plan of Treatment: follow up at [facility] in one week for incision check
[2019-06-25 13:15] VITALS: BP 127/74
--- NOTE | 2019-06-28 13:35 | PDOC DELIVERY SUMMARY ---
Delivery Summary - Maternal Hx : IV TAISHA: 06/26/18 Gestational Age: 39+3 Risk Factors: Other - HSV Ruptured Membranes: AROM Time of Rupture: 08:52 Fluids: Clear - Delivery Presentation: Vertex Heart Rate Monitoring: Done Pre-Operatively Uterine Contraction Monitoring: External Support Person Present: Yes Location: OR : Scheduled Placenta: Within Normal Limits Nuchal Cord: No Delivery of Placenta Date: 06/22/19 Delivery of Placenta Time: 08:54 Estimated Blood Loss: 900 cc - Medications Type of Anesthesia:: GA - Infant Assess and Care Baby 1 Male Delivery of Infant Date: 06/22/19 Delivery of Time: 08:53 at 1 minute: 8 at 5 minutes: 9 Preprinted Number On Band: [id number] Skin to Skin: No To Nursery At: 09:02 Mode of Transport: Bassinet Delivery Weight: 4,185 Infant Delivery Length: 21 in - Delivery Personnel Pilot: KRISTIN MENCHACA RN: PRICILA RAY MD: MT BARBER
== END 2019-06-25 17:35 | disposition home or self-care (01) | DRG 788 ==
LOC: 2S 05:36
PROVIDERS: ADMIT Obstetrics & Gynecology Gynecology; ATTEND Obstetrics & Gynecology Gynecology
PROC: 10D00Z1 Extraction of Products of Conception, Low, Open Approach (ICD-10-PCS; principal; 2019-06-22 08:30)
DX: O98.52 Other viral diseases complicating childbirth (principal); B00.9 Herpesviral infection, unspecified; Z3A.39 39 weeks gestation of pregnancy; Z37.0 Single live birth
CPT/HCPCS: 1961; 36415; 59025; 80307; 81001; 85025; 85027; 86850; 86900; 86901; 94799; J0131; J0690; J1170; J1885; J2175; J2270; J2405; J2590; J2704; J3490; J7120